=== PATIENT | male | born 1995 | race African-American/Black ===

== ENCOUNTER 2017-06-10 10:17 | Emergency (ER) | payer OTHER ==
[2017-06-10 10:30] LABS: EOSINOPHIL (%) 1.1 % (0-5); EOSINOPHIL COUNT 0.1 K/uL (0-0.3); HEMATOCRIT 41.4 % (38.0-50.0); IMMATURE GRANULOCYTE (%) 0.3 % (0.0-0.7); INSTRUMENT ABS NEUTROPHIL CT 8.2 K/uL; LYMPHOCYTE COUNT 1.5 K/uL (1.0-2.8); MCH 27.1 PG (29.0-34.0); MCHC 32.9 G/DL (30.0-36.0); MCV 82.5 FL (86-99); MEAN PLAT.VOLUME 9.8 uM^3 (9.0-12.4); MONOCYTE (%) 6.4 % (3-12); MONOCYTE COUNT 0.7 K/uL (0-0.8); NEUTROPHIL (%) 77.5 % (45-76); NEUTROPHIL COUNT 8.2 K/uL (1.8-6.4); PLATELET COUNT 187 K/uL (156-360); RBC DIS.WIDTH-CV 12.6 % (11.8-14.6); RBC DIS.WIDTH-SD 37.8 % (39-53); RED BLOOD COUNT 5.02 M/uL (4.00-5.50); WHITE BLOOD COUNT 10.6 K/uL (4.1-10.2)
[2017-06-10 10:39] LABS: AMYLASE 129 IU/L (1-118); CHLORIDE 107 mEq/L (99-109); SODIUM 141 mEq/L (136-147)
[2017-06-10 10:40] LABS: GLUCOSE 95 mg/dL (70-99)
[2017-06-10 10:42] LABS: ANION GAP 7 MEQ/L (2-14)
[2017-06-10 10:44] LABS: SERUM ETHYL ALCOHOL < 10 mg/dL
[2017-06-10 10:45] LABS: UREA NITROGEN (BUN) 16 mg/dL (9-23)
[2017-06-10 10:47] LABS: LIPASE 11 U/L (1.0-51.0)
[2017-06-10 10:54] LABS: GFR ESTIMATE (CALCULATED) > 59 mL/min/
== END 2017-06-10 12:25 ==
LOC: TRA 10:17 → EME 10:17 → TRA 12:25
PROVIDERS: Emergency Medicine
PROC: 3E0234Z Introduction of Serum, Toxoid and Vaccine into Muscle, Percutaneous Approach (ICD-10-PCS; principal; 2017-06-10)
DX: S00.212A Abrasion of left eyelid and periocular area, initial encounter (principal); S50.312A Abrasion of left elbow, initial encounter; S40.212A Abrasion of left shoulder, initial encounter; S20.319A Abrasion of unspecified front wall of thorax, initial encounter; S00.81XA Abrasion of other part of head, initial encounter; S20.419A Abrasion of unspecified back wall of thorax, initial encounter; X99.9XXA Assault by unspecified sharp object, initial encounter; Y92.149 Unspecified place in prison as the place of occurrence of the external cause; Z23 Encounter for immunization
CPT/HCPCS: 70450; 71250; 71260; 74176; 74177; 80048; 81003; 82150; 83690; 85025; 86850; 86900; 86901; 99281; 99285; G0480